=== PATIENT | female | born 1975 | race African-American/Black ===

== ENCOUNTER 2019-01-28 21:30 | Emergency (ER) | payer SELFPAY ==
[~2019-01-28] VITALS: Ht 162.6 cm; Wt 106.1 kg
[2019-01-28 21:34] VITALS: BP 157/100; PULSE 99; RESP 18; Ht 162.6 cm; Wt 106.1 kg
== END 2019-01-28 22:19 | disposition left against medical advice (07) ==
LOC: E/R 21:30
DX: Z53.21 Procedure and treatment not carried out due to patient leaving prior to being seen by health care provider (principal)